=== PATIENT | female | born 1970 ===

== ENCOUNTER 2023-08-08 13:40 | Outpatient (RCR) | payer OTHER, SELFPAY | END 2023-08-08 23:59 | disposition home or self-care (01) | LOC: RPT 13:40 | PROVIDERS: ATTENDING PHYSICIAN Physical Medicine & Rehabilitation Sports Medicine; FAMILY PHYSICIAN Internal Medicine | DX: N39.41 Urge incontinence (principal); M16.0 Bilateral primary osteoarthritis of hip; M25.551 Pain in right hip; M25.552 Pain in left hip; M62.89 Other specified disorders of muscle; Z73.6 Limitation of activities due to disability | CPT/HCPCS: 97110; 97163 ==

== ENCOUNTER 2023-09-12 15:15 | Outpatient (RCR) | payer OTHER, SELFPAY | END 2023-09-12 23:59 | disposition home or self-care (01) | LOC: RPT 15:15 | PROVIDERS: ATTENDING PHYSICIAN Physical Medicine & Rehabilitation Sports Medicine; FAMILY PHYSICIAN Internal Medicine | DX: N39.41 Urge incontinence (principal); M16.0 Bilateral primary osteoarthritis of hip; M25.551 Pain in right hip; M25.552 Pain in left hip; M62.89 Other specified disorders of muscle; Z73.6 Limitation of activities due to disability | CPT/HCPCS: 97110; 97112 ==

== ENCOUNTER 2023-09-19 18:48 | Outpatient (RCR) | payer OTHER, SELFPAY | END 2023-09-19 23:59 | disposition home or self-care (01) | LOC: RPT 18:48 | PROVIDERS: ATTENDING PHYSICIAN Physical Medicine & Rehabilitation Sports Medicine; FAMILY PHYSICIAN Internal Medicine | DX: N39.41 Urge incontinence (principal); M16.0 Bilateral primary osteoarthritis of hip; M25.551 Pain in right hip; M25.552 Pain in left hip; M62.89 Other specified disorders of muscle; Z73.6 Limitation of activities due to disability | CPT/HCPCS: 97110 ==